=== PATIENT | male | born 1930 | race Asian ===

== ENCOUNTER 2017-12-23 20:21 | Inpatient (IN) | payer OTHER ==
[~2017-12-23] VITALS: Ht 165.1 cm; Wt 66.2 kg
[~2017-12-23 20:21] MED LIST: METF500T7 PO; METO5TAB95 PO; MULT-950 PO; OMEP10 PO; RAMI2.5 PO; SIMV40TA5 PO; ZOLP5 PO; [UNRECOGNIZED DRUG - CODE] PO
[2017-12-23] MEDS ORDERED: SYMB8060 IH (20:36)
[2017-12-23] MEDS ORDERED: CHOL200016 PO (20:36)
[2017-12-23] MEDS ORDERED: DUTA.5 PO (20:36)
[2017-12-23] MEDS ORDERED: METO25XL PO (20:36)
[2017-12-23] MEDS ORDERED: OMEP20 PO (20:36)
[2017-12-23] MEDS ORDERED: UMEC62.5 IH (20:36)
[2017-12-23] MEDS ORDERED: LEVO5TAB13 PO (20:36)
[2017-12-23] MEDS ORDERED: ALFU10TA30 PO (20:36)
[2017-12-23] MEDS ORDERED: CLOP75 PO (20:36)
[2017-12-23] MEDS ORDERED: PRAV40TA4 PO (20:36)
[2017-12-23] MEDS ORDERED: FLUT1AER IH (20:36)
[2017-12-23] MEDS ORDERED: ASPI-556 PO (20:36)
[2017-12-23] MEDS ORDERED: SITA1TBM PO (20:36)
[2017-12-23] MEDS ORDERED: OXYGEN THERAPY IH SCH (20:45)
[2017-12-23 21:42] LABS: BASOPHILS % (AUTO) 0.4 % (0.0-2.0); EOSINOPHILS % (AUTO) 0.6 % (1.0-6.0); HEMATOCRIT 37.7 % (41-53); HEMOGLOBIN 12.9 g/dL (13.5-17.5); LYMPHOCYTES # (AUTO) 0.6 K/uL (1.0-4.8); LYMPHOCYTES % (AUTO) 9.5 % (22.0-44.0); MEAN CORPUSCULAR HGB CONC 34.3 G/dL (31.0-37.0); MEAN CORPUSCULAR VOLUME 94 fL (80-100); MONOCYTES # (AUTO) 0.3 K/uL (0.1-1.0); MONOCYTES % (AUTO) 5.1 % (2.0-9.0); NEUTROPHILS # (AUTO) 5.6 K/uL (1.8-7.7); NEUTROPHILS % (AUTO) 84.4 % (40.0-70.0); PLATELET COUNT (AUTO) 134 K/uL (150-450); RED BLOOD CELL COUNT(AUTO) 4.03 MIL/uL (4.50-5.90); RED CELL DISTRIBUTION WIDTH 14.5 % (11.5-14.5)
[2017-12-23 21:51] LABS: APPEARANCE,URINE CLOUDY (CLEAR); BILIRUBIN,URINE NEGATIVE (NEGATIVE); GLUCOSE, URINE (UA) NEGATIVE (NEGATIVE); KETONES,URINE TRACE mg/dL (NEGATIVE); LEUKOCYTE ESTERASE ,URINE NEGATIVE (NEGATIVE); NITRATE,URINE NEGATIVE (NEGATIVE); OCCULT BLOOD,URINE LARGE (NEGATIVE); PROTEIN,URINE NEGATIVE (NEGATIVE)
[2017-12-23 21:53] LABS: ANION GAP 12 mmol/L (8-16); CALCIUM, TOTAL 8.4 mg/dL (8.8-10.5); CARBON DIOXIDE 22 mmol/L (22-29); CHLORIDE 105 mmol/L (98-107); CREATININE 1.61 mg/dL (0.60-1.30); GLOMERULAR FILTR. RATE CALC 41 mL/min (>60); GLUCOSE,RANDOM 163 mg/dL (70-110); POTASSIUM 4.1 mmol/L (3.5-5.1); SODIUM SERUM 139 mmol/L (136-145); UREA NITROGEN, BLOOD 21 mg/dL (7-18)
[2017-12-23] MEDS ORDERED: ALBUTEROL SULFATE 5 MG/ML 20 ML NEB SOLN [BULK] NEB ONE (22:00)
[2017-12-23] MEDS ORDERED: IPRATROPIUM BROMIDE 0.5 MG/2.5 ML NEB SOLUTION NEB ONE (22:00)
[2017-12-23] MEDS ORDERED: ACETAMINOPHEN 500 MG TABLET PO ONE (22:00)
[2017-12-23 22:04] LABS: RBC,URINE >100 /HPF (0-2)
[2017-12-23 22:05] LABS: BACTERIA,URINE Rare /HPF (None Seen); SQUAMOUS EPITHELIAL CELL,UR Rare /LPF (None Seen); WBC,URINE 0-2 /HPF (0-5)
[2017-12-23 22:06] LABS: ALANINE AMINOTRANSFERASE 22 U/L (12-78); ALBUMIN 3.4 g/dL (3.4-5.0); ALKALINE PHOSPHATASE 50 U/L (46-116); ASPARTATE AMINOTRANSFERASE 17 U/L (15-37); BILIRUBIN,TOTAL 0.5 mg/dL (0.1-1.0); LIPASE 133 U/L (73-393); TOTAL PROTEIN, SERUM 7.1 g/dL (6.4-8.2)
[2017-12-23 22:20] LABS: B-TYPE NATRIURETIC PEPTIDE 104 pg/mL (0-100)
[2017-12-23] MEDS ORDERED: 0.9% SODIUM CHLORIDE 5 ML NEB SOLUTION NEB ONE (22:23)
[2017-12-23] MEDS: ALBUTEROL SULFATE 2.5 MG/0.5 ML NEB SOLUTION NEB SCH (22:28)
[2017-12-23] MEDS: IPRATROPIUM BROMIDE 0.5 MG/2.5 ML NEB SOLUTION NEB SCH (22:28)
[2017-12-23] MEDS ORDERED: ACETAMINOPHEN 325 MG TABLET PO PRN (22:30)
[2017-12-23] MEDS ORDERED: SODIUM CHLORIDE 0.9% 2,000 ML IV ONE (22:30)
[2017-12-23] MEDS ORDERED: VANCOMYCIN HCL 1 GM/D5% WATER 200 ML IV ONE (22:30)
[2017-12-23] MEDS ORDERED: PIPERACILLIN/TAZO 3.375 GM/D5W 50 ML IV ONE (22:30)
[2017-12-23] MEDS ORDERED: DEXTROSE 50%-WATER 25 GM/50 ML SYRINGE IVP PRN (22:30)
[2017-12-23 23:04] LABS: LACTIC ACID 3.6 mmol/L (0.4-2.0)
[2017-12-23] MEDS ORDERED: IBUPROFEN 600 MG TABLET PO ONE (23:45)
[2017-12-24] VITALS (7 sets, daily range): BP systolic 96–126; BP diastolic 55–76
[2017-12-24] MEDS: MethylPREDNISolone SOD SUCC 125 MG/2 ML VIAL IVP SCH ×5 (00:07→23:16)
[2017-12-24] MEDS ORDERED: NOREPINEPHRINE 4 MG/D5%-WATER 250 ML IV PRN (01:06)
[2017-12-24] MEDS ORDERED: ONDANSETRON HCL 4 MG/2 ML VIAL IVP PRN (02:00)
[2017-12-24] MEDS ORDERED: ACETAMINOPHEN 325 MG TABLET PO PRN (02:00)
[2017-12-24] MEDS: IPRATROPIUM BROMIDE 0.5 MG/2.5 ML NEB SOLUTION NEB SCH ×6 (02:45→23:03)
[2017-12-24] MEDS: ALBUTEROL SULFATE 2.5 MG/0.5 ML NEB SOLUTION NEB SCH ×6 (02:45→23:03)
[2017-12-24] MEDS: PIPERACILLIN/TAZO 3.375 GM/D5W 50 ML IV SCH ×2 (05:31→11:39)
[2017-12-24 05:48] LABS: CREATININE 2.02 mg/dL (0.60-1.30); POTASSIUM 3.6 mmol/L (3.5-5.1)
[2017-12-24 06:00] LABS: BASOPHILS % (AUTO) 0.2 % (0.0-2.0); EOSINOPHILS % (AUTO) 0 % (1.0-6.0); HEMATOCRIT 35.7 % (41-53); HEMOGLOBIN 12.1 g/dL (13.5-17.5); LYMPHOCYTES # (AUTO) 0.2 K/uL (1.0-4.8); LYMPHOCYTES % (AUTO) 4.9 % (22.0-44.0); MEAN CORPUSCULAR HGB CONC 33.9 G/dL (31.0-37.0); MEAN CORPUSCULAR VOLUME 94 fL (80-100); MONOCYTES # (AUTO) 0.2 K/uL (0.1-1.0); MONOCYTES % (AUTO) 4.1 % (2.0-9.0); NEUTROPHILS # (AUTO) 3.9 K/uL (1.8-7.7); PLATELET COUNT (AUTO) 133 K/uL (150-450); RED BLOOD CELL COUNT(AUTO) 3.78 MIL/uL (4.50-5.90); RED CELL DISTRIBUTION WIDTH 14.9 % (11.5-14.5)
[2017-12-24] MEDS: INSULIN LISPRO 100 UNITS/ML SQ PRN ×3 (06:20→20:49)
[2017-12-24 06:48] LABS: NEUTROPHILS % (AUTO) 90.8 % (40.0-70.0)
[2017-12-24] MEDS ORDERED: VANCOMYCIN HCL 750 MG in DEXTROSE 5%-WATER 250 ML IV SCH (08:00)
[2017-12-24] MEDS: PANTOPRAZOLE SODIUM 40 MG DR TABLET PO SCH (09:12)
[2017-12-24] MEDS: ASPIRIN 81 MG CHEWABLE TABLET PO SCH (09:12)
[2017-12-24] MEDS: DOCUSATE SODIUM 100 MG CAPSULE PO SCH ×2 (09:12→20:40)
[2017-12-24] MEDS: HEPARIN SODIUM,PORCINE 5,000 UNITS/ML VIAL SQ SCH ×2 (09:13→20:40)
[2017-12-24] MEDS ORDERED: SODIUM CHLORIDE 0.9% 100 ML ONE (11:10)
[2017-12-24] MEDS ORDERED: SODIUM CHLORIDE 0.9% 200 ML ONE (14:57)
[2017-12-24 18:14] LABS: GLUCOSE,POINT OF CARE 183 MG/DL (70-110)
[2017-12-24 18:19] LABS: GLUCOSE,POINT OF CARE 216 MG/DL (70-110)
[2017-12-24 18:29] LABS: CREATININE,URINE RANDOM 147.2 mg/dL (30.0-125.0); SODIUM,URINE RANDOM 54 mmol/l (20-110); UREA NITROGEN,URINE RANDOM 1127 mg/dL (350-1000)
[2017-12-24 18:31] LABS: APPEARANCE,URINE CLEAR (CLEAR); BILIRUBIN,URINE NEGATIVE (NEGATIVE); GLUCOSE, URINE (UA) 100 mg/dL (NEGATIVE); KETONES,URINE TRACE mg/dL (NEGATIVE); LEUKOCYTE ESTERASE ,URINE NEGATIVE (NEGATIVE); NITRATE,URINE NEGATIVE (NEGATIVE); OCCULT BLOOD,URINE LARGE (NEGATIVE); PH,URINE 5.5 (5.0-8.0); PROTEIN,URINE SEE CONFIRM (NEGATIVE); UROBILINOGEN,URINE 0.2 mg/dL (<=1.0)
[2017-12-24 18:56] LABS: RBC,URINE 51-100 /HPF (0-2); SULFOSALICYLIC ACID,URINE 2+ (Negative)
[2017-12-24 18:57] LABS: BACTERIA,URINE Rare /HPF (None Seen); WBC,URINE 0-2 /HPF (0-5)
[2017-12-24 18:58] LABS: SQUAMOUS EPITHELIAL CELL,UR Rare /LPF (None Seen)
[2017-12-24] MEDS: BUDESONIDE 0.5 MG/2 ML NEB SOLUTION NEB SCH (19:31)
[2017-12-24] MEDS ORDERED: SODIUM CHLORIDE 0.9% 500 ML IV ONE (21:19)
[2017-12-24] MEDS: PIPERACILLIN SODIUM/TAZOBACTAM 2.25 GM in DEXTROSE 5%-WATER 50 ML IV SCH (23:17)
[2017-12-25 00:05] VITALS: BP 120/56
[2017-12-25] MEDS: IPRATROPIUM BROMIDE 0.5 MG/2.5 ML NEB SOLUTION NEB SCH ×6 (02:48→22:57)
[2017-12-25] MEDS: ALBUTEROL SULFATE 2.5 MG/0.5 ML NEB SOLUTION NEB SCH ×6 (02:48→22:57)
[2017-12-25 04:35] VITALS: BP 109/61
[2017-12-25] MEDS: MethylPREDNISolone SOD SUCC 125 MG/2 ML VIAL IVP SCH ×3 (05:33→18:15)
[2017-12-25] MEDS: PIPERACILLIN SODIUM/TAZOBACTAM 2.25 GM in DEXTROSE 5%-WATER 50 ML IV SCH ×3 (05:33→18:34)
[2017-12-25] MEDS: INSULIN LISPRO 100 UNITS/ML SQ PRN ×4 (05:42→20:50)
[2017-12-25 07:10] LABS: CALCIUM, TOTAL 8.2 mg/dL (8.8-10.5); CREATININE 1.67 mg/dL (0.60-1.30); POTASSIUM 3.8 mmol/L (3.5-5.1)
[2017-12-25 07:14] LABS: PHOSPHORUS 2.9 mg/dL (2.5-4.9)
[2017-12-25 07:37] VITALS: BP 109/60
[2017-12-25] MEDS ORDERED: VANCOMYCIN HCL 500 MG in DEXTROSE 5%-WATER 100 ML IV SCH (08:00)
[2017-12-25] MEDS: ASPIRIN 81 MG CHEWABLE TABLET PO SCH (08:19)
[2017-12-25] MEDS: PANTOPRAZOLE SODIUM 40 MG DR TABLET PO SCH (08:19)
[2017-12-25] MEDS: HEPARIN SODIUM,PORCINE 5,000 UNITS/ML VIAL SQ SCH ×2 (08:19→20:42)
[2017-12-25] MEDS: DOCUSATE SODIUM 100 MG CAPSULE PO SCH ×2 (08:19→20:42)
[2017-12-25] MEDS: BUDESONIDE 0.5 MG/2 ML NEB SOLUTION NEB SCH ×2 (08:21→18:57)
[2017-12-25 11:30] VITALS: BP 111/66
[2017-12-25] MEDS ORDERED: BENZONATATE 100 MG CAPSULE PO PRN (13:15)
[2017-12-25] MEDS: BISACODYL 10 MG RECTAL RECTAL SUPPOSITORY PR PRN (13:27)
[2017-12-25 15:41] VITALS: BP 116/64
[2017-12-25 20:53] VITALS: BP 127/59
[2017-12-25 22:28] LABS: GLUCOMETER DEV NAME(LOC) 5S 2Q; GLUCOSE,POINT OF CARE 178 MG/DL (70-110)
[2017-12-25 22:28] LABS: GLUCOMETER DEV NAME(LOC) 5S 2Q; GLUCOSE,POINT OF CARE 154 MG/DL (70-110)
[2017-12-25 22:53] LABS: GLUCOMETER DEV NAME(LOC) 5N 1P; GLUCOSE,POINT OF CARE 167 MG/DL (70-110)
[2017-12-26] VITALS (7 sets, daily range): BP systolic 115–152; BP diastolic 66–90
[2017-12-26] MEDS: MethylPREDNISolone SOD SUCC 125 MG/2 ML VIAL IVP SCH ×4 (00:08→23:36)
[2017-12-26] MEDS: PIPERACILLIN SODIUM/TAZOBACTAM 2.25 GM in DEXTROSE 5%-WATER 50 ML IV SCH ×5 (00:08→23:36)
[2017-12-26] MEDS: IPRATROPIUM BROMIDE 0.5 MG/2.5 ML NEB SOLUTION NEB SCH ×6 (03:15→23:09)
[2017-12-26] MEDS: ALBUTEROL SULFATE 2.5 MG/0.5 ML NEB SOLUTION NEB SCH ×6 (03:15→23:08)
[2017-12-26] MEDS: OxyCODONE HCL/ACETAMINOPHEN 5-325 MG TABLET PO PRN (05:11)
[2017-12-26] MEDS: INSULIN LISPRO 100 UNITS/ML SQ PRN ×4 (06:12→20:07)
[2017-12-26 07:07] LABS: CALCIUM, TOTAL 8.5 mg/dL (8.8-10.5); CREATININE 1.71 mg/dL (0.60-1.30); POTASSIUM 3.4 mmol/L (3.5-5.1)
[2017-12-26 07:12] LABS: MAGNESIUM 2.1 mg/dL (1.80-2.40); PHOSPHORUS 2.9 mg/dL (2.5-4.9); VANCOMYCIN,RANDOM 8.6 mcg/mL (25.0-50.0)
[2017-12-26] MEDS: BUDESONIDE 0.5 MG/2 ML NEB SOLUTION NEB SCH ×2 (07:55→19:07)
[2017-12-26 08:13] LABS: GLUCOMETER DEV NAME(LOC) 5S 1M; GLUCOSE,POINT OF CARE 231 MG/DL (70-110)
[2017-12-26 08:14] LABS: GLUCOMETER DEV NAME(LOC) 5S 1M; GLUCOSE,POINT OF CARE 184 MG/DL (70-110)
[2017-12-26 08:14] LABS: GLUCOMETER DEV NAME(LOC) 5S 1M; GLUCOSE,POINT OF CARE 198 MG/DL (70-110)
[2017-12-26] MEDS: DOCUSATE SODIUM 100 MG CAPSULE PO SCH ×2 (08:14→20:02)
[2017-12-26] MEDS: VANCOMYCIN HCL 750 MG in DEXTROSE 5%-WATER 250 ML IV SCH (08:14)
[2017-12-26] MEDS: HEPARIN SODIUM,PORCINE 5,000 UNITS/ML VIAL SQ SCH ×2 (08:15→20:02)
[2017-12-26] MEDS: PANTOPRAZOLE SODIUM 40 MG DR TABLET PO SCH (08:15)
[2017-12-26] MEDS: ASPIRIN 81 MG CHEWABLE TABLET PO SCH (08:15)
[2017-12-26] MEDS ORDERED: POTASSIUM CHLORIDE 20 MEQ ER TABLET PO ONE (09:30)
[2017-12-26] MEDS: BISACODYL 10 MG RECTAL RECTAL SUPPOSITORY PR PRN (13:24)
[2017-12-26 20:18] LABS: GLUCOMETER DEV NAME(LOC) 5S 1M; GLUCOSE,POINT OF CARE 190 MG/DL (70-110)
[2017-12-26 20:18] LABS: GLUCOMETER DEV NAME(LOC) 5S 1M; GLUCOSE,POINT OF CARE 228 MG/DL (70-110)
[2017-12-26 20:18] LABS: GLUCOMETER DEV NAME(LOC) 5S 1M; GLUCOSE,POINT OF CARE 176 MG/DL (70-110)
[2017-12-27] MEDS: ALBUTEROL SULFATE 2.5 MG/0.5 ML NEB SOLUTION NEB SCH ×6 (03:35→23:18)
[2017-12-27] MEDS: IPRATROPIUM BROMIDE 0.5 MG/2.5 ML NEB SOLUTION NEB SCH ×6 (03:35→23:18)
[2017-12-27 04:18] VITALS: BP 150/81
[2017-12-27] MEDS: PIPERACILLIN SODIUM/TAZOBACTAM 2.25 GM in DEXTROSE 5%-WATER 50 ML IV SCH ×4 (05:19→23:55)
[2017-12-27] MEDS ORDERED: 0.9% SODIUM CHLORIDE 5 ML NEB SOLUTION NEB ONE (05:50)
[2017-12-27] MEDS: INSULIN LISPRO 100 UNITS/ML SQ PRN ×3 (06:02→17:53)
[2017-12-27] MEDS: OxyCODONE HCL/ACETAMINOPHEN 5-325 MG TABLET PO PRN (06:19)
[2017-12-27 06:53] LABS: BASOPHILS % (AUTO) 0.1 % (0.0-2.0); EOSINOPHILS % (AUTO) 0 % (1.0-6.0); HEMATOCRIT 35.4 % (41-53); HEMOGLOBIN 12.4 g/dL (13.5-17.5); LYMPHOCYTES # (AUTO) 0.1 K/uL (1.0-4.8); LYMPHOCYTES % (AUTO) 1.6 % (22.0-44.0); MEAN CORPUSCULAR HEMOGLOBIN 32.2 pg (26.0-34.0); MEAN CORPUSCULAR HGB CONC 34.9 G/dL (31.0-37.0); MEAN CORPUSCULAR VOLUME 92 fL (80-100); MONOCYTES # (AUTO) 0.3 K/uL (0.1-1.0); MONOCYTES % (AUTO) 3.1 % (2.0-9.0); NEUTROPHILS # (AUTO) 9.1 K/uL (1.8-7.7); PLATELET COUNT (AUTO) 130 K/uL (150-450); RED BLOOD CELL COUNT(AUTO) 3.84 MIL/uL (4.50-5.90); RED CELL DISTRIBUTION WIDTH 14.9 % (11.5-14.5)
[2017-12-27] MEDS: CARVEDILOL 6.25 MG TABLET PO SCH ×2 (06:53→21:16)
[2017-12-27 06:58] LABS: NEUTROPHILS % (AUTO) 95.2 % (40.0-70.0)
[2017-12-27 07:22] LABS: CALCIUM, TOTAL 8.7 mg/dL (8.8-10.5); CREATININE 1.75 mg/dL (0.60-1.30); MAGNESIUM 2.2 mg/dL (1.80-2.40); PHOSPHORUS 3.7 mg/dL (2.5-4.9); POTASSIUM 3.6 mmol/L (3.5-5.1)
[2017-12-27 07:46] VITALS: BP 146/80
[2017-12-27] MEDS: VANCOMYCIN HCL 750 MG in DEXTROSE 5%-WATER 250 ML IV SCH (08:29)
[2017-12-27] MEDS: HEPARIN SODIUM,PORCINE 5,000 UNITS/ML VIAL SQ SCH ×2 (08:30→21:16)
[2017-12-27] MEDS: ASPIRIN 81 MG CHEWABLE TABLET PO SCH (08:30)
[2017-12-27] MEDS: DOCUSATE SODIUM 100 MG CAPSULE PO SCH ×2 (08:30→21:16)
[2017-12-27] MEDS: PANTOPRAZOLE SODIUM 40 MG DR TABLET PO SCH (08:30)
[2017-12-27] MEDS: MethylPREDNISolone SOD SUCC 125 MG/2 ML VIAL IVP SCH (08:30)
[2017-12-27 11:18] VITALS: BP 132/64
[2017-12-27] MEDS: BUDESONIDE 0.5 MG/2 ML NEB SOLUTION NEB SCH ×2 (11:40→19:24)
[2017-12-27] MEDS ORDERED: LACTULOSE 20 GM/30 ML SOLUTION UDCUP PO PRN (13:45)
[2017-12-27 14:11] LABS: GLUCOMETER DEV NAME(LOC) 5S 1M; GLUCOSE,POINT OF CARE 189 MG/DL (70-110)
[2017-12-27 14:11] LABS: GLUCOMETER DEV NAME(LOC) 5S 2Q; GLUCOSE,POINT OF CARE 202 MG/DL (70-110)
[2017-12-27] MEDS: PredniSONE 10 MG TABLET PO SCH (14:42)
[2017-12-27 15:10] VITALS: BP 135/66
[2017-12-27 19:14] VITALS: BP 122/78
[2017-12-27 20:05] LABS: GLUCOMETER DEV NAME(LOC) 5S 2Q; GLUCOSE,POINT OF CARE 157 MG/DL (70-110)
[2017-12-27 21:33] LABS: GLUCOMETER DEV NAME(LOC) 5S 1M; GLUCOSE,POINT OF CARE 133 MG/DL (70-110)
[2017-12-28] VITALS (8 sets, daily range): BP systolic 130–161; BP diastolic 65–94
[2017-12-28] MEDS: IPRATROPIUM BROMIDE 0.5 MG/2.5 ML NEB SOLUTION NEB SCH ×6 (03:22→23:11)
[2017-12-28] MEDS: ALBUTEROL SULFATE 2.5 MG/0.5 ML NEB SOLUTION NEB SCH ×6 (03:22→23:11)
[2017-12-28] MEDS: PIPERACILLIN SODIUM/TAZOBACTAM 2.25 GM in DEXTROSE 5%-WATER 50 ML IV SCH (06:12)
[2017-12-28 06:39] LABS: CALCIUM, TOTAL 8.4 mg/dL (8.8-10.5); CREATININE 1.66 mg/dL (0.60-1.30); POTASSIUM 4.3 mmol/L (3.5-5.1)
[2017-12-28] MEDS ORDERED: VANCOMYCIN HCL 1 GM/D5% WATER 200 ML IV SCH (08:00)
[2017-12-28] MEDS: BUDESONIDE 0.5 MG/2 ML NEB SOLUTION NEB SCH ×2 (08:03→19:33)
[2017-12-28] MEDS: PredniSONE 10 MG TABLET PO SCH (08:55)
[2017-12-28] MEDS: PANTOPRAZOLE SODIUM 40 MG DR TABLET PO SCH (08:55)
[2017-12-28] MEDS: HEPARIN SODIUM,PORCINE 5,000 UNITS/ML VIAL SQ SCH ×2 (08:55→20:21)
[2017-12-28] MEDS: ASPIRIN 81 MG CHEWABLE TABLET PO SCH (08:55)
[2017-12-28] MEDS: CARVEDILOL 6.25 MG TABLET PO SCH ×2 (08:55→20:21)
[2017-12-28] MEDS: DOCUSATE SODIUM 100 MG CAPSULE PO SCH ×2 (08:55→20:20)
[2017-12-28] MEDS: LEVOFLOXACIN 250 MG TABLET PO SCH (12:14)
[2017-12-28] MEDS: INSULIN LISPRO 100 UNITS/ML SQ PRN ×3 (12:14→20:30)
[2017-12-28] MEDS ORDERED: BUDE0.5A3 NEB (14:14)
[2017-12-28] MEDS ORDERED: DSS100 PO (14:15)
[2017-12-28] MEDS ORDERED: CARV6 PO (14:15)
[2017-12-28] MEDS ORDERED: HEPA500018 SQ (14:15)
[2017-12-28] MEDS ORDERED: IPRNEB IH (14:16)
[2017-12-28] MEDS ORDERED: ALBU8HFA IH (14:18)
[2017-12-28] MEDS ORDERED: LEVO250 PO (14:19)
[2017-12-28] MEDS ORDERED: PANT40TA25 PO (14:20)
[2017-12-28] MEDS ORDERED: PRED20 PO (14:20)
[2017-12-28] MEDS ORDERED: ACET-2247 PO (14:22)
[2017-12-28] MEDS ORDERED: BISA10S PR (14:25)
[2017-12-28] MEDS ORDERED: BENZ-51 PO (14:25)
[2017-12-28] MEDS ORDERED: LACT30L PO (14:26)
[2017-12-28] MEDS ORDERED: INSU100V SQ (14:27)
[2017-12-28 16:02] LABS: GLUCOMETER DEV NAME(LOC) 5S 1M; GLUCOSE,POINT OF CARE 163 MG/DL (70-110)
[2017-12-28 16:02] LABS: GLUCOMETER DEV NAME(LOC) 5S 2Q; GLUCOSE,POINT OF CARE 144 MG/DL (70-110)
[2017-12-29] MEDS: IPRATROPIUM BROMIDE 0.5 MG/2.5 ML NEB SOLUTION NEB SCH ×4 (04:03→14:03)
[2017-12-29] MEDS: ALBUTEROL SULFATE 2.5 MG/0.5 ML NEB SOLUTION NEB SCH ×4 (04:03→14:03)
[2017-12-29 04:21] VITALS: BP 144/83
[2017-12-29 07:13] LABS: CALCIUM, TOTAL 8.2 mg/dL (8.8-10.5); CREATININE 1.4 mg/dL (0.60-1.30); POTASSIUM 3.4 mmol/L (3.5-5.1)
[2017-12-29 07:15] LABS: ORGANISM ID Not indicated.; S PNEUMO SOURCE Urine; STREP PNEUMONIAE AG URINE Negative (Negative); STREP.PNEUMO BODY FLUID CULT. Not Indicated
[2017-12-29 07:33] VITALS: BP 148/90
[2017-12-29] MEDS: BUDESONIDE 0.5 MG/2 ML NEB SOLUTION NEB SCH (07:47)
[2017-12-29] MEDS: DOCUSATE SODIUM 100 MG CAPSULE PO SCH (09:00)
[2017-12-29] MEDS ORDERED: PredniSONE 20 MG TABLET PO SCH (09:00)
[2017-12-29] MEDS: CARVEDILOL 6.25 MG TABLET PO SCH (09:04)
[2017-12-29] MEDS: PANTOPRAZOLE SODIUM 40 MG DR TABLET PO SCH (09:04)
[2017-12-29] MEDS: LEVOFLOXACIN 250 MG TABLET PO SCH (09:04)
[2017-12-29] MEDS: ASPIRIN 81 MG CHEWABLE TABLET PO SCH (09:04)
[2017-12-29] MEDS: HEPARIN SODIUM,PORCINE 5,000 UNITS/ML VIAL SQ SCH (09:05)
[2017-12-29] MEDS ORDERED: POTASSIUM CHLORIDE 20 MEQ ER TABLET PO ONE (10:30)
[2017-12-29 11:18] VITALS: BP 136/76
[2017-12-29 12:23] LABS: LEGIONELLA PNEUMO AG URINE Negative (Negative)
[2017-12-29 15:36] VITALS: BP 149/86
[2017-12-29 23:05] LABS: GLUCOMETER DEV NAME(LOC) 5S 1M; GLUCOSE,POINT OF CARE 155 MG/DL (70-110)
[2017-12-29 23:05] LABS: GLUCOMETER DEV NAME(LOC) 5S 1M; GLUCOSE,POINT OF CARE 184 MG/DL (70-110)
[2017-12-29 23:05] LABS: GLUCOMETER DEV NAME(LOC) 5S 1M; GLUCOSE,POINT OF CARE 162 MG/DL (70-110)
[2017-12-29 23:05] LABS: GLUCOMETER DEV NAME(LOC) 5S 1M; GLUCOSE,POINT OF CARE 96 MG/DL (70-110)
[2017-12-29 23:05] LABS: GLUCOMETER DEV NAME(LOC) 5S 1M; GLUCOSE,POINT OF CARE 120 MG/DL (70-110)
[2017-12-29 23:05] LABS: GLUCOMETER DEV NAME(LOC) 5S 1M; GLUCOSE,POINT OF CARE 203 MG/DL (70-110)
== END 2017-12-29 17:35 | DRG 871 ==
LOC: EMS 20:24 → 5N 22:53 → ICU 22:53 → 5S 12-24 18:13
PROVIDERS: ADMIT Internal Medicine; ATTEND Internal Medicine
DX: A41.9 Sepsis, unspecified organism (principal); J96.01 Acute respiratory failure with hypoxia; J18.9 Pneumonia, unspecified organism; J44.1 Chronic obstructive pulmonary disease with (acute) exacerbation; N17.9 Acute kidney failure, unspecified; E87.2 Acidosis; I50.42 Chronic combined systolic (congestive) and diastolic (congestive) heart failure; J44.0 Chronic obstructive pulmonary disease with (acute) lower respiratory infection; I13.0 Hypertensive heart and chronic kidney disease with heart failure and stage 1 through stage 4 chronic kidney disease, or unspecified chronic kidney disease; E11.22 Type 2 diabetes mellitus with diabetic chronic kidney disease; N18.9 Chronic kidney disease, unspecified; R26.2 Difficulty in walking, not elsewhere classified; I25.10 Atherosclerotic heart disease of native coronary artery without angina pectoris; E78.5 Hyperlipidemia, unspecified; M19.90 Unspecified osteoarthritis, unspecified site; R31.9 Hematuria, unspecified; K21.9 Gastro-esophageal reflux disease without esophagitis; E78.00 Pure hypercholesterolemia, unspecified; Z79.899 Other long term (current) drug therapy; Z79.02 Long term (current) use of antithrombotics/antiplatelets; Z79.4 Long term (current) use of insulin; Z79.51 Long term (current) use of inhaled steroids; Z79.82 Long term (current) use of aspirin; Z87.01 Personal history of pneumonia (recurrent); Z87.891 Personal history of nicotine dependence; Z83.3 Family history of diabetes mellitus; Z82.49 Family history of ischemic heart disease and other diseases of the circulatory system
CPT/HCPCS: 51702; 71250; 76770; 82570; 83036; 83605; 83735; 84100; 84300; 84540; 87040; 87081; 87449; 87899; 93005; 93306; 94640; 94644; 97110; 97162; 97530; 99291; J1644; J2543; J2930; J3370; J3490; J7030; J7040; J7050; J7060